=== PATIENT | male | born 1980 | race Caucasian/White ===

== ENCOUNTER → 2021-12-06 | Outpatient (CLI) | payer OTHER, SELFPAY ==
--- NOTE | 2021-12-06 08:30 | RAD_ITS ---
INDICATION: GERD EXAMINATION/TECHNIQUE: oral contrast and gas bubbles were administered to the patient. Total Fluoroscopic Time: AND number of Fluoroscopic Images: OR Radiation dosage index: COMPARISON: None. FINDINGS: No masses or strictures are identified. There is a small hiatal hernia. The mucosal pattern is unremarkable. There is normal motility. Mild reflux. RAD/Esophagus Dual Contrast IMPRESSION: Small hiatal hernia and mild reflux. Electronically Signed: Candido Ennis, at 10:11 EDT ,
== END | disposition home or self-care (01) ==
LOC: RAD 08:11
PROVIDERS: PCP Family Medicine; Referring Provider Family Medicine; Visit Provider Family Medicine
DX: R07.9 Chest pain, unspecified (principal)
CPT/HCPCS: 74221

== ENCOUNTER → 2021-12-17 | Outpatient (CLI) | payer OTHER, SELFPAY ==
--- NOTE | 2021-12-17 07:27 | CT_ITS ---
STUDY: CT CHEST WITH CONTRAST REASON FOR EXAM: Male, 40 years old. CHEST PAIN. WITH GLOBUS SENSATION. R/O EXTRINSIC COMPRESSION RADIATION DOSAGE (If Supplied By Facility): CTDIvol = ( 21.09 ) mGy, DLP = ( 739.25 ) mGycm TECHNIQUE: Transaxial imaging was performed following intravenous administration of IV 100mL Isovue -300. Multiplanar coronal and sagittal images were reformatted. Individualized dose optimization techniques were used for this CT. COMPARISON: No relevant priors. FINDINGS: CHEST Small benign-appearing bilateral axillary lymph nodes. The lungs are normal. There is no demonstrated pleural abnormality. Normal heart and pericardium. Normal mediastinum. Normal hilar regions. Normal unenhanced pulmonary arteries. Normal aorta arch and descending thoracic aorta. There are mild degenerative changes of the thoracic spine. Diffuse fatty infiltration of the liver. There is a 7.7 mm cyst in the anterior upper pole of the left kidney. CT/Chest WITH Contrast IMPRESSION: Diffuse fatty infiltration of the liver. No intrathoracic abnormality is seen. Electronically Signed: Shekhar Gay MD at 9:25 EDT ,
== END | disposition home or self-care (01) ==
PROVIDERS: PCP Family Medicine; Referring Provider Family Medicine; Visit Provider Family Medicine
DX: R07.9 Chest pain, unspecified (principal)
CPT/HCPCS: 71260; Q9967